=== PATIENT | female | born 1935 | race African-American/Black ===

== ENCOUNTER 2016-10-05 20:27 | Observation (INO) | payer MEDICARE, MEDICAID ==
[~2016-10-05] VITALS: Ht 165.1 cm; Wt 75.8 kg
[~2016-10-05 20:27] MED LIST: AMLO10TA2 PO; AMLO1CAP15 PO; AMLO5TAB2 PO; CARV6.25 PO; CEPH-350 PO; CITA20TA5 PO; CITA20TA9 PO; DONE5TAB7 PO; FLUT1DIS3 IH; FURO-80 PO; MEMA10TA PO; PANT40TA3 PO; POTA20TA14 PO; RAMI2.5C PO; ROSU20TA PO
[2016-10-05 21:06] LABS: BASOPHIL # 0.1 10^3/uL (0.0-0.1); EOSINOPHIL # 0.1 10^3/uL (0.0-0.2); EOSINOPHIL % 2.6 % (0.0-5.0); HEMOGLOBIN 16.6 g/dL (12.0-15.0); LYMPHOCYTES # 1.3 10^3/uL (1.0-4.8); MEAN CELL HGB 26.9 pg (26-34); MEAN CELL HGB CONCENTRATION 31.6 g/dL (33-37); MEAN CORP VOLUME 85.3 fL (78-100); MEAN PLATELET VOLUME 10.7 fL (7.8-11.0); MONOCYTES # 0.5 10^3/uL (0.3-0.8); MONOCYTES % 9.3 % (5.0-12.0); NEUTROPHIL # 3.1 10^3/uL (1.8-7.7); NEUTROPHILS % 61.5 % (41.0-85.0); WHITE BLOOD CELL 5.1 10^3/uL (4.5-11.0)
--- NOTE | 2016-10-05 21:23 | ER.PDOC ---
General Chief Complaint: Nausea,Vomiting,Diarrhea Stated Complaint: VOMITING,HEADACHE Time seen by MD: 20:30 Source: family (son) Exam Limitations: clinical condition History of Present Illness Initial Comments Patient is a demented patient who has been having diarrhea since yesterday. Had some episodes of vomiting today. became clammy and further confused. BP measures and systolic found to be in the 80's and 60s. Had a fluid bolus in the ambulance on the way to the ER. Timing/Duration: getting worse Severity/Quality: moderate, severe Associated Symptoms (vomiting): mild vomiting (Had about 2 episodes of vomiting.) Associated Symptoms (diarrhea): copious (Has been having frequnt stools since yeterday.), watery Allergies: Coded Allergies: No Known Allergies (Unverified , 09/18/13) Home Meds Active Scripts Pantoprazole Sodium (PROTONIX) 40 Mg Tablet.dr, 40 MG PO DAILY for 30 Days Prov:VICTOR M VELAZQUEZ MD 03/27/16 Fluticasone/Salmeterol (ADVAIR 250-50 DISKUS) 1 Each Disk.w.dev, 1 EACH IH BIDAC for 14 Days Prov:VICTOR M VELAZQUEZ MD 03/06/16 Reported Medications Citalopram Hydrobromide (CELEXA) 20 Mg Tablet, 1 TAB PO DAILY, #90 TAB 3 Refills 03/03/16 Amlodipine Besylate (AMLODIPINE BESYLATE) 10 Mg Tablet, 1 TAB PO DAILY, #30 TAB 5 Refills 03/03/16 Ramipril (RAMIPRIL) 2.5 Mg Capsule, 0.5 CAP PO BID, #30 CAP 5 Refills 03/03/16 Carvedilol 6.25MG (COREG 6.25MG) 6.25 Mg Tablet, 1 TAB PO BID, #180 TAB 1 Refill 03/02/16 Memantine Hcl (NAMENDA) 10 Mg Tablet, 10 MG PO BID, TABLET 07/09/15 Donepezil Hcl (DONEPEZIL HCL) 5 Mg Tablet, 10 MG PO BID, TABLET 07/09/15 Rosuvastatin 20MG (CRESTOR 20MG) 20 Mg Tablet, 20 MG PO DAILY, TAB 07/09/15 Discontinued Scripts Cephalexin (KEFLEX) 500 Mg Capsule, 500 MG PO TID, #5 Prov:VICTOR M VELAZQUEZ MD 03/06/16 Vital Signs First Vital Signs Date Time Temp Pulse Resp B/P (MAP) Pulse Ox O2 Delivery O2 Flow Rate FiO2 10/05/16 20:28 97.5 70 16 96 10/05/16 20:35 105/58 (74) Last Vital Signs Date Time Temp Pulse Resp B/P (MAP) Pulse Ox O2 Delivery O2 Flow Rate FiO2 10/05/16 21:36 97.5 70 16 135/72 (93) 96 Past Medical History Medical History: congestive heart failure, hypertension Surgical History: pacemaker/ICD Social History Smoking: non-smoker Alcohol Use: none Drug Use: none Constitutional: no symptoms reported Respiratory: no symptoms reported Cardiovascular: no symptoms reported All Other Systems: Reviewed and Negative Physical Exam General Appearance: No Apparent Distress, WD/WN, Other (pleasant.) HEENT: PERRL/EOMI, Normal ENT Inspection, TMs Normal, Pharynx Normal Respiratory: chest non-tender, lungs clear, normal breath sounds, no respiratory distress, no accessory muscle use Cardiovascular: Normal Peripheral Pulses, Regular Rate, Rhythm, No Edema, No Gallop, No JVD, No Murmur Gastrointestinal: Normal Bowel Sounds, Non Tender, Soft Extremities: Other (cold and midly clammy.) Skin: Other (dry-looking skin.) Results/Orders Results/Orders Laboratory Tests Test 10/05/16 21:04 White Blood Count 5.1 10^3/uL (4.5-11.0) Red Blood Count 6.17 10^6/uL (4.00-5.20) Hemoglobin 16.6 g/dL (12.0-15.0) Hematocrit 52.6 % (36.0-46.0) Mean Corpuscular Volume 85.3 fL (78-100) Mean Corpuscular Hemoglobin 26.9 pg (26-34) Mean Corpuscular Hemoglobin Concent 31.6 g/dL (33-37) Red Cell Distribution Width 15.0 % (11.5-14.5) Platelet Count 172 10^3/uL (150-400) Mean Platelet Volume 10.7 fL (7.8-11.0) Neutrophils (%) (Auto) 61.5 % (41.0-85.0) Lymphocytes (%) (Auto) 25.0 % (24.0-44.0) Monocytes (%) (Auto) 9.3 % (5.0-12.0) Neutrophils # (Auto) 3.1 10^3/uL (1.8-7.7) Lymphocytes # (Auto) 1.3 10^3/uL (1.0-4.8) Monocytes # (Auto) 0.5 10^3/uL (0.3-0.8) Absolute Immature Granulocyte (auto 0.03 10^3 u/L (0-2) Eosinophils % 2.6 % (0.0-5.0) Basophils % 1.0 % (0.0-0.2) Basophils # 0.1 10^3/uL (0.0-0.1) Eosinophil Count 0.1 10^3/uL (0.0-0.2) Sodium Level 142 mmol/L (132-145) Potassium Level 4.3 mmol/L (3.6-5.2) Chloride Level 103.0 mmol/L (96-109) Carbon Dioxide Level 26.9 mmol/L (20.0-32) Anion Gap 16.4 Blood Urea Nitrogen 23 mg/dL (7-18) Creatinine 1.66 mg/dL (0.59-1.40) Estimated GFR () 35.9 (>/=60) BUN/Creatinine Ratio 13.0 Glucose Level 135 mg/dL (70-110) Calcium Level 9.9 mg/dL (8.4-10.5) Total Bilirubin 0.7 mg/dL (0.2-1.0) Aspartate Amino Transf (AST/SGOT) 20 U/L (0-35) Alanine Aminotransferase (ALT/SGPT) 15 U/L (12-78) Alkaline Phosphatase 108 U/L (50-136) Total Protein 8.4 g/dL (6.4-8.2) Albumin 4.0 g/dL (3.4-5.0) Globulin 4.4 Percent Immature Gran (Cell Imm) 0.60 % (0.00-0.50) Progress Progress Vital Signs Date Time Temp Pulse Resp B/P (MAP) Pulse Ox O2 Delivery O2 Flow Rate FiO2 10/05/16 21:36 97.5 70 16 135/72 (93) 96 Allergies Coded Allergies No Known Allergies (Unverified09/18/13) Departure Time of Disposition: 22:20 Disposition: 09 ADMITTED INPATIENT Impression: Primary Impression: Acute gastroenteritis Additional Impressions: Hypotension Nausea & vomiting Chronic congestive heart failure Condition: Stable Referrals: VICTOR M VELAZQUEZ MD (PCP) PRIMARY CARE PROVIDER AGATA QUINONES PROTOHISTORIAN (Family) Additional Instructions: Admit in observation under Dr. Velazquez. Comments Admit in observation under Dr. Velazquez. JAJA KEVIN MD Oct 05, 2016 21:23
[2016-10-05 21:25] LABS: CALCIUM 9.9 mg/dL (8.4-10.5); CARBON DIOXIDE 26.9 mmol/L (20.0-32)
--- NOTE | 2016-10-05 21:46 | NUR ---
DR DAVE KEVIN SPEAKING WITH DR JIMÉNEZ PATIENT TO BE ADMITTED TO [facility] FOR OBSERVATION
--- NOTE | 2016-10-05 22:25 | NUR ---
Pt arrived to room 328 from ER via wheelchair with x2 family and Ashley LEONARDO. Pt assisted to bed. Admission assessment to be completed at this time.
[2016-10-05 22:30] VITALS: BP 134/86
[2016-10-05] MEDS ORDERED: ZOFRAN IV PRN (22:30)
[2016-10-05] MEDS: [UNRECOGNIZED DRUG - OTHER] IV SCH (22:30)
[2016-10-05] MEDS ORDERED: D5W-1/2NS 1000ML 1,000 ML ONE (23:02)
[2016-10-06 02:30] VITALS: BP 126/75
[2016-10-06] MEDS: [UNRECOGNIZED DRUG - OTHER] IV SCH ×3 (04:04→14:44)
[2016-10-06 05:26] LABS: BASOPHIL % 0.4 % (0.0-0.2); EOSINOPHIL # 0.1 10^3/uL (0.0-0.2); EOSINOPHIL % 1.1 % (0.0-5.0); HEMOGLOBIN 14.8 g/dL (12.0-15.0); LYMPHOCYTES # 1.7 10^3/uL (1.0-4.8); LYMPHOCYTES % 24.1 % (24.0-44.0); MEAN CELL HGB 26.4 pg (26-34); MEAN CELL HGB CONCENTRATION 31.2 g/dL (33-37); MEAN CORP VOLUME 84.7 fL (78-100); MEAN PLATELET VOLUME 10.6 fL (7.8-11.0); MONOCYTES # 0.6 10^3/uL (0.3-0.8); MONOCYTES % 8.7 % (5.0-12.0); NEUTROPHIL # 4.7 10^3/uL (1.8-7.7); NEUTROPHILS % 65.6 % (41.0-85.0); RED CELL DISTRIBUTION WIDTH 14.7 % (11.5-14.5); WHITE BLOOD CELL 7.1 10^3/uL (4.5-11.0)
[2016-10-06 05:33] LABS: CALCIUM 8.9 mg/dL (8.4-10.5); CARBON DIOXIDE 24.3 mmol/L (20.0-32)
--- NOTE | 2016-10-06 05:45 | NUR ---
Dr. Velazquez here to see patient, new order received for soft/bland diet.
--- NOTE | 2016-10-06 06:44 | NUR ---
REPORT Received report, assumed care for patient.
--- NOTE | 2016-10-06 07:18 | NUR ---
STATUS Patient resting peacefully in bed. IV fluids running @90. No s/s of distress. Patient denies pain. Morning vitals were taken. Requested coffee. Call light in reach, bed is low and locked. Will get coffee and continue to monitor.
[2016-10-06 07:22] VITALS: BP 133/82
[2016-10-06] MEDS ORDERED: ADVAIR 250-50 DISKUS IH SCH (07:30)
--- NOTE | 2016-10-06 08:01 | NUR ---
STATUS Patient served breakfast tray. No other requests at this time. Will continue to monitor.
--- NOTE | 2016-10-06 08:40 | NUR ---
DISCHARGE PLAN CM VISITED WITH PATIENT CONCERNING HER DISCHARGE PLAN AND NEED. PATIENT LIVES AT HOME WITH SON AND DAUGHTER IN LAW WHOM ARE HER PROVIDERS. PATIENT IS DANG INDEPENDENT ON ADLS AND USES HER WALKER WITH WHEELS, SEAT AND BRAKES FOR AMBULATION. SHE ALSO STATED SHE HAS A SHOWER CHAIR IN PLACE AND DENIES NEEDING ADDITIONAL DME NEEDS @ THIS TIME. PATIENT CURRENTLY HAS [employer] IN PLACE FOR HER HOME O2 NEEDS. EDUCATION GIVEN TO PATIENT REGARDING HH SERVICES AND BENEFITS WITH [facility] @ THIS TIME. PATIENT STATED HER SON WORKS @ [facility] AND IF SHE NEEDED THEIR SERVICES HE WOULD ARRANGE IT. CURRENT GOAL FOR PATIENT IS TO RETURN HOME WITH FAMILY TO ROUTINE CARE UPON DISCHARGE AND CURRENT PROVIDER IN PLACE. CM TO CONTINUE TO FOLLOW PATIENT PLAN OF CARE AND FOR FURTHER DISCHARGE NEEDS.
--- NOTE | 2016-10-06 08:45 | NUR ---
STATUS Patient resting peacfully. Morning meds given at this time. Heart rate is strong, palpable bilaterally on pedal and radial pulses. Abdomen is soft, non-distended. Bowel sounds active X4. IV site asymptomatic, intact, and free of redness or drainage. No edema noted. Patient denies pain. No needs at this time. Call light in reach, bed is locked and low. Will continue to monitor.
[2016-10-06] MEDS ORDERED: COREG PO SCH (09:00)
[2016-10-06] MEDS ORDERED: PROTONIX PO SCH (09:00)
[2016-10-06] MEDS ORDERED: CELEXA PO SCH (09:00)
[2016-10-06] MEDS ORDERED: ARICEPT PO SCH (09:00)
[2016-10-06] MEDS ORDERED: VENTOLIN IH SCH (09:00)
[2016-10-06] MEDS ORDERED: NAMENDA PO SCH (09:00)
[2016-10-06] MEDS ORDERED: PULMICORT IH SCH (09:00)
--- NOTE | 2016-10-06 09:38 | DIREP ---
PROCEDURE:XRAY ACUTE ABD INCL UPRIGHT CHEST COMPARISON:None. INDICATIONS:abd pain TECHNIQUE:Flat and upright views of the abdomen and a PA view of the chest are provided. FINDINGS: LUNGS/PLEURA:Normal. CARDIAC:Left-sided dual chamber pacemaker in place. MEDIASTINUM:Normal. BONES:No acute findings. BOWEL GAS PATTERN:Normal. No air-fluid levels. FREE AIR:None. CALCIFICATIONS:None significant. OTHER:Clips right upper quadrant of the abdomen. CONCLUSION:No acute abnormalities. Dictated by: Kip Zavaleta M.D. on 10/06/2016 at 09:34 AM
[2016-10-06] MEDS ORDERED: D5W-1/2NS 1000ML 1,000 ML ONE (10:37)
[2016-10-06 12:36] VITALS: BP 131/81
--- NOTE | 2016-10-06 12:39 | NUR ---
STATUS Patient sitting on the side of the bed eating lunch. No s/s of distress. IV fluids running @90. Denies pain. No requests at this time. Call light in reach, bed is locked and low. Will continue to monitor.
--- NOTE | 2016-10-06 14:40 | NUR ---
STATUS Went to check on patient to assess IV intake. Patient had taken IV out herself and stated that " It was burning and she didn't want it anymore." IV catheter was intact. Will notify doctor.
[2016-10-06 15:05] VITALS: BP 131/81
--- NOTE | 2016-10-06 16:20 | NUR ---
DISCHARGE Patient discharged. Relinquished care.
--- NOTE | 2016-10-07 00:51 | HPH ---
ADMIT DATE: 10/06/2016 CHIEF COMPLAINT: Nausea, vomiting, abdominal pain. HISTORY OF PRESENT ILLNESS: The patient is an 81-year-old white female with known history of hypertension, post-pacer, sinus node dysfunction and presented with 2 episodes of vomiting, diarrhea, low blood pressure around 80 systolic and was very hypovolemic, was given a fluid challenge in the Emergency Room and was admitted with hypovolemia, shock, dehydration and acute gastroenteritis. She responded very well to fluids and was doing very well, but was admitted for further evaluation and management. ALLERGIES: NONE KNOWN. MEDICATIONS: She is on Protonix 40 mg once a day, Advair Diskus 250/50 one puff twice a day, Celexa 20 mg once a day, amlodipine 10 mg once a day, ramipril 1.25 mg twice a day and Coreg 6.25 mg twice a day, Namenda 10 mg twice a day, Aricept 5 mg once a day, Crestor 20 mg once a day. PAST MEDICAL HISTORY: History of hypertension, chronic diastolic heart failure, mild chronic systolic heart failure, sick sinus syndrome, post-pacer. SOCIAL HISTORY: Nonsmoker, no ethanol abuse. FAMILY HISTORY: Not much available from the patient. PHYSICAL EXAMINATION: GENERAL: When she came in, she was alert, awake, and oriented. She was responsive and cognitive functions were intact. VITAL SIGNS: Her blood pressure was 80/50 when she came in, pulse was about 75, respirations 16 and saturation was 96%. HEENT: Unremarkable. mucous membranes were dry. NECK: No JVD was discernible. No carotid bruits. CHEST: Thin chest wall. LUNGS: Poor air entry bilaterally. HEART: Sounds S1, S2 normal. Device in the left infraclavicular region. ABDOMEN: Soft, diffuse mild tenderness was noted. Hyperactive bowel sounds were noted. EXTREMITIES: Distal pulses poorly felt. NEUROLOGIC: No focal neuro deficit is documented. LABORATORY DATA: Showed 16.6 hemoglobin, due to hemoconcentration. BUN 23 and creatinine 1.66 and erroneous total protein of 8.4, which came down to 6.9. Abdominal x-ray was unremarkable. IMPRESSION: Hypovolemia, hypotension, acute gastroenteritis, CKD class 2, mild chronic systolic heart failure, hypertension, hypertensive heart disease, post-pacer. PLAN: At this time, admit the patient with IV fluids, symptomatic treatment and clinical followup. Tay Velazquez MD DR: ELLIS/christiane JOB# [id number]
--- NOTE | 2016-10-07 00:56 | DSH ---
DATE OF DISCHARGE: 10/06/2016 FINAL DIAGNOSES: Hypovolemia, , acute gastroenteritis, CKD class 2, dehydration, chronic systolic heart failure, post-pacer hypertension. Please refer to my history and physical to the point of my impression. HOSPITAL COURSE: The patient is an 81-year-old female who presented in the late hours of 10/05/2016, and came with nausea, vomiting, diarrhea, and she had eaten some stored food and then her blood pressure was 80 systolic, was given fluid challenge, improved normally, creatinine came down from 1.66 to 1.46 with a BUN of 23. Sugar was acceptable. Total protein was actually 6.9, the first value of 8.4 was erroneous value. Initial hemoglobin 16.6, subsequently 14.8, could have been some degree of hemoconcentration. X-ray of the abdomen was normal. She insisted on going home, was feeling well, had had no diarrhea or stools and was tolerating diet, and she was sent home on her home medications: Amlodipine 10 mg once a day, Coreg 6.25 mg twice a day, citalopram 20 mg once a day, Aricept 10 mg twice a day, Advair 250/50 one puff twice a day, Namenda 10 mg twice a day, Protonix 40 mg once a day, ramipril 1.25 mg twice a day, and Crestor 20 mg once a day, to see me back in the clinic in 2 weeks. Laxmichand MD Caroline DR: ELLIS/christiane JOB# [id number]
== END 2016-10-06 17:41 | disposition home or self-care (01) ==
LOC: EDBD 20:27 → ER 20:27 → EDUNIT# 20:27 → MS 21:49
PROVIDERS: ADMIT Specialist; ATTEND Specialist
DX: K52.9 Noninfective gastroenteritis and colitis, unspecified (principal); E86.0 Dehydration; R19.7 Diarrhea, unspecified; R51 Headache; I95.9 Hypotension, unspecified; E86.1 Hypovolemia; R57.9 Shock, unspecified; I50.42 Chronic combined systolic (congestive) and diastolic (congestive) heart failure; I49.5 Sick sinus syndrome; I13.0 Hypertensive heart and chronic kidney disease with heart failure and stage 1 through stage 4 chronic kidney disease, or unspecified chronic kidney disease; N18.2 Chronic kidney disease, stage 2 (mild); Z95.0 Presence of cardiac pacemaker
CPT/HCPCS: 36415 ×2; 74022; 80053 ×2; 82150; 85025 ×2; 99285; G0378 ×20